=== PATIENT | male | born 2000 | race Caucasian/White ===

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

== ENCOUNTER 2020-10-25 12:35 | Emergency (ER) | payer OTHER ==
[~2020-10-25] VITALS: Ht 172.7 cm; Wt 111.4 kg
[~2020-10-25 12:35] MED LIST changes: +HYDROCODON-ACE1 EA10 PO
[2020-10-25 13:03] VITALS: BP 140/74; Ht 172.7 cm; Wt 111.4 kg
== END 2020-10-25 18:44 | disposition left against medical advice (07) ==
LOC: D.ER 12:35
DX: M79.641 Pain in right hand (principal)